=== PATIENT | female | born 1955 | race Caucasian/White ===

== ENCOUNTER 2018-12-25 00:12 | Emergency (ER) | payer OTHER ==
[~2018-12-25] VITALS: Ht 152.4 cm; Wt 54.9 kg
[~2018-12-25 00:12] MED LIST: COLACE100 MG PO; FLO4 PO; NORCO1 TA1 PO
[2018-12-25 00:17] VITALS: Ht 152.4 cm; Wt 54.9 kg
[2018-12-25 02:02] LABS: PLATELET COUNT 193 x10^3mcL (130-400); RED CELL DISTRIBUTION WIDTH 11.9 % (11.5-14.5)
[2018-12-25 02:03] LABS: BASOPHIL % 0 % (0-2)
[2018-12-25 02:05] LABS: CALCIUM 7.9 mg/dL (8.5-10.1); POTASSIUM SERUM 3.6 mmol/L (3.5-5.1)
[2018-12-25 02:10] LABS: ALBUMIN 3.6 g/dL (3.4-5.0); BILIRUBIN TOTAL 0.48 mg/dL (0.20-1.00); TOTAL PROTEIN, SERUM 7.2 g/dL (6.4-8.2)
[2018-12-25 03:04] VITALS: BP 142/59
== END 2018-12-25 03:05 | disposition home or self-care (01) ==
LOC: ED 00:12
PROVIDERS: Emergency Medicine
DX: N20.2 Calculus of kidney with calculus of ureter (principal); R11.10 Vomiting, unspecified
CPT/HCPCS: J1885; J2270; J2405; J7030